=== PATIENT | female | born 1980 | race Caucasian/White ===

== ENCOUNTER → 2019-03-07 | Outpatient (CLI) | payer BC ==
--- NOTE | 2019-03-08 15:11 | XCELERA REPORT ---
[address] [address] Transthoracic Echocardiogram Report Name: CAITY GOMEZ Age: 39 yrs Gender: Female : 1980 Patient Status: Outpatient Patient Location: RAD Study Date: 03/07/2019 08:26 AM Height: 62 in Weight: 165 lb BSA: 1.8 m2 Reason For Study: DYSPNEA Ordering Physician: PEGGY MAO Performed By: Gael Marino Interpretation Summary Normal ECHO study. No cardiac cause of pt's dyspnea. MMode/2D Measurements & Calculations RVDd: 3.3 cm LVIDd: 4.7 cm FS: 35.0 % Ao root diam: 2.5 cm IVSd: 0.79 cm LVIDs: 3.1 cm EDV(Teich): Ao root area: LVPWd: 0.79 cm 104.2 ml ESV(Teich): 37.2 ml4.9 cm2 LA dimension: 3.3 cm EF(Teich): 64.3 % LVLd ap4: 8.9 cm SV(MOD-sp4): EDV(MOD-sp4): 39.0 ml 64.0 ml LVLs ap4: 6.9 cm ESV(MOD-sp4): 25.0 ml EF(MOD-sp4): 60.9 % Doppler Measurements & Calculations MV E max chris: MV P1/2t max chris: Ao V2 max: LV V1 max P.5 cm/sec 81.7 cm/sec 141.2 cm/sec 4.2 mmHg MV A max chris: MV P1/2t: 59.0 msec Ao max P.0 mmHg LV V1 max: 61.4 cm/sec 102.2 cm/sec MV E/A: 1.3 MVA(P1/2t): 3.7 cm2 MV dec slope: 405.3 cm/sec2 MV dec time: 0.23 sec PA V2 max: PI end-d chris: MV P1/2t-pr_phl: 79.5 cm/sec 67.9 cm/sec 59.0 msec PA max P.5 mmHg Left Ventricle The left ventricle is normal in size. There is normal left ventricular wall thickness. The left ventricular ejection fraction is normal. LV EF is 65-70%. Doppler measurements suggest normal left ventricular diastolic function. No regional wall motion abnormalities noted. There is no thrombus. Right Ventricle The right ventricle is grossly normal size. Atria The right atrium is normal. The left atrial size is normal. The interatrial septum is intact with no evidence for an atrial septal defect. Mitral Valve The mitral valve is normal in structure and function. There is mild mitral annular calcification. There is no evidence of mitral valve prolapse. There is no mitral valve stenosis. There is a trace amount of mitral regurgitation. Aortic Valve The aortic valve is trileaflet. The aortic valve opens well. The aortic valve is normal in structure and functions normally. There is no aortic valvular vegetation. There is no aortic valve stenosis. No aortic regurgitation is present. Tricuspid Valve The tricuspid valve is not well visualized, but is grossly normal. There is no tricuspid valve prolapse. There is no tricuspid stenosis. There is a mild amount of tricuspid regurgitation. Pulmonic Valve There is a trace or physiologic amount of pulmonic regurgitation. Great Vessels The aortic root is normal size. The inferior vena cava appeared normal. Effusions There is no pericardial effusion. I WMSI = 1.00 % Normal = 100 Segments Size X - Cannot 2 - 4 - 1-2 small Interpret 1 - Normal Hypokinetic 3 - AkineticDyskinetic 3-5 moderate 5 - 6-14 large Aneurysmal 15-16 diffuse : PEGGY MAO > Ezekiel Reddy
== END ==
LOC: RAD 08:11
PROVIDERS: ATTEND Family Medicine
DX: R06.09 Other forms of dyspnea (principal)
CPT/HCPCS: 93306